=== PATIENT | male | born 1955 | race Caucasian/White ===

== ENCOUNTER 2017-01-09 09:41 | Outpatient (CLI) | payer BC, OTHER ==
[2017-01-09 13:26] LABS: #Basophils 0.1 thou/uL (0.0-0.2); #Eosinphils 0.3 thou/uL (0.0-0.7); #Lymphocytes 1.5 thou/uL (1.20-3.40); #Monocytes 0.8 thou/uL (0.11-0.59); #Neutrophils 4.8 thou/uL (1.40-6.50); %Basophils 1.1 % (0.0-1.0); %Eosinophils 3.8 % (0.0-10.0); %Lymphocytes 20.5 % (21.0-51.0); %Monocytes 10.5 % (0.0-10.0); %Neutrophils 64.1 % (42.0-75.0); Hemoglobin 17.3 g/dL (14.0-18.0); Mean Corpuscular HGB CONC 33.3 g/dL (32.0-36.0); Mean Corpuscular Hemoglobin 28.7 pg (27.0-31.0); Mean Platelet Volume 6.2 fL (7.4-10.4); Platelet Count 243 thou/uL (130-400); RBC Distribution Width 12.5 % (11.5-14.5); Red Blood Cell (RBC) Count 6.05 mill/uL (4.70-6.10); White Blood Cell (WBC) Count 7.4 thou/uL (4.8-10.8)
[2017-01-09 14:18] LABS: ALT (SGPT) 15 U/L (8-55); AST (SGOT) 15 U/L (5-34); Albumin 4.9 g/dL (3.5-5.0); Alkaline Phosphatase 61 U/L (40-150); Anion Gap 16 mmol/L (10-20); BUN (Urea Nitrogen) 8 mg/dL (8.4-25.7); Bilirubin, Total 0.8 mg/dL (0.2-1.2); Calc. Creatinine Clearance 0 mL/min (70-130); Calcium 9.7 mg/dL (7.8-10.44); Carbon Dioxide 24 mmol/L (22-29); Cardiac Risk 3.2 (Less than 4.5); Chloride 103 mmol/L (98-107); Cholesterol 190 mg/dl (< 200 Desired); Estimated GFR-MDRD Greater than 90; Globulin 2.8 g/dL (2.4-3.5); Glucose 77 mg/dL (70-105); HDL Cholesterol 60 mg/dL (>60 Neg Risk); LDL Cholesterol, Calculated 114 mg/dL; Potassium 4.4 mmol/L (3.5-5.1); Protein, Total 7.7 g/dL (6.0-8.3); Sodium 139 mmol/L (136-145); Triglycerides 80 mg/dL (Less than 150)
== END 2017-01-09 09:42 | disposition home or self-care (01) ==
LOC: HPCALD 09:41
PROVIDERS: ATTEND Family Medicine
DX: Z12.5 Encounter for screening for malignant neoplasm of prostate (principal); Z13.6 Encounter for screening for cardiovascular disorders; D49.2 Neoplasm of unspecified behavior of bone, soft tissue, and skin
CPT/HCPCS: 36415; 80053; 80061; 85025; 88305; G0103

== ENCOUNTER 2019-04-14 08:16 | Outpatient (CLI) | payer BC ==
--- NOTE | 2019-04-14 13:35 | ULT ---
ULTRASOUND OF THE NECK SOFT TISSUES: 04/14/19 Ultrasonography of a soft tissue mass on the right side of the neck that has apparently been present for years was done. This ultrasound shows a solid, somewhat hypoechoic mass that is well-defined and measures 3.9 x 1.8 x 2.1 cm. It does not obviously arise from the thyroid gland. Its origin is not cl ear on this study. Probably a CT or MRI would better address such. IMPRESSION: Discrete soft tissue mass that does not obviously arise from the thyroid gland, but its origin is not clear on this study. Consider CT or MRI as a follow-up either before or after referring to an ENT do ctor. POS: HOME
== END 2019-04-14 08:17 | disposition home or self-care (01) ==
LOC: BURULT 08:16
PROVIDERS: ATTEND Family Medicine
DX: R22.1 Localized swelling, mass and lump, neck (principal)
CPT/HCPCS: 76536